=== PATIENT | female | born 1950 | race Caucasian/White ===

== ENCOUNTER 2022-05-15 06:10 | Inpatient (IN) ==
[2022-05-15] MEDS ORDERED: SODIUM CHLORIDE 0.9% 1000ML 1,000 ML IV STA (06:37)
[2022-05-15] MEDS ORDERED: ONDANSETRON INJ 2 MG/ML 2 ML VIAL IV STA (06:37)
--- NOTE | 2022-05-15 06:38 | Emergency Department Note ---
Impression & Plan Partial obstruction of small intestine, Right sided abdominal pain ED Provider Note NAME: ANGEL LOFTON AGE: 71 SEX: F : 1950 ARRIVES VIA: Walk-In INFORMANT: Patient, ED PROVIDER(S): Javad Suarez DO CHIEF COMPLAINT: Abdominal pain HPI: The patient is a 71-year-old female who presented to the emergency department for evaluation of abdominal pain. The patient describes right-sided abdominal pain which began last evening. She tried [id number] medications without relief. She has a history of irritable bowel syndrome but states the pain did not feel completely similar but she did try the usual things she would do to make her irritable bowel feel better. She does not have any history of intra-abdominal surgery in the past. She notices nausea but no vomiting. She is had no fever. She denies having any back pain. She denies having any dysuria or frequency. She states the pain is moderate and worsens with ambulation as well as bending forward. ROS: See above HPI for pertinent positives & negatives. A total of 10 systems reviewed and were otherwise negative. PAST MEDICAL HISTORY: See Below PAST SURGICAL HISTORY: See Below FAMILY HISTORY: See Below SOCIAL HISTORY: See Below HOME MEDICATIONS: See Below ALLERGIES: See Below VITALS: See Below PHYSICAL EXAMINATION: GENERAL: Patient is awake alert in no acute distress patient is resting comfortably and showing no signs of anxiety EYES: The conjunctivae are clear. The pupils are round and reactive. EARS, NOSE, MOUTH AND THROAT: The nose is without any evidence of any deformity. Mucous membranes are moist. Tongue is midline. NECK: The neck is nontender and supple. RESPIRATORY: Normal respiratory effort is noted there is no evidence of wheezing rhonchi or rales CARDIOVASCULAR: Regular rate and rhythm noted there no murmurs rubs or gallops normal S1 normal S2. GASTROINTESTINAL: There is right lower quadrant tenderness palpation with guarding in the right lower quadrant. The abdomen is soft and mildly distended. MUSCULOSKELETAL/EXTREMITIES: There is no evidence of gross deformity full range of motion is noted in the hips and shoulders. SKIN: There is no obvious evidence of any rash. There are no petechiae, pallor or cyanosis noted. NEUROLOGIC: Patient is awake alert and oriented x3 MEDICAL DECISION MAKING: The patient is a 71-year-old female who presented to the emergency department for an evaluation of right-sided abdominal pain. The patient's history and physical exam appear to be consistent with a surgical abdomen. Laboratory studies did not reveal high white blood cell count but CT of the abdomen and pelvis was obtained. The patient was found to have findings in the small bowel that could be consistent with small bowel obstruction. The patient was treated with IV fluids in the emergency department. She was reevaluated multiple times. I discussed the patient's laboratory and radiographic studies with her. There are some uncertainty as to the cause of the patient's findings at this time but given her abdominal pain I do feel the patient may require further inpatient management. For this reason I discussed her case with the [facility] hospitalist group. They have agreed to evaluate the patient in the emergency department for further management and disposition. Triage Nursing notes reviewed. Prior medical records reviewed Vital Signs: reviewed and remarkable for elevated blood pressure. Differential diagnosis: Etiologies such as appendicitis, diverticulitis, obstruction, inflammatory bowel disease, renal colic, PUD, biliary pathology, pancreatitis, mesenteric ischemia, aortic pathology, infections, genitourinary, UTI, perforated viscus, as well as others were entertained. ER treatment provided: See below Diagnostics interpreted by me: ECG: none Cardiac Monitoring: An order was placed for continuous cardiac monitoring. The monitor shows a rate of 75 bpm with sinus rhythm. Laboratory studies: As stated above and show below. Imaging studies: See below Consultation(s): I discussed this case with Dr. Medrano who is on-call for the [facility] hospitalist group. Past Med/Surg History Medical History (Updated 05/15/22 @ 11:57 by Javad Suarez DO) Hypertension Hypothyroid IBS (irritable bowel syndrome) Surgical History H/O thyroidectomy H/O tubal ligation Social History Smoking Status: Former smoker Preferred Language: Mongolian Feels Safe at Home: Yes Allergies Allergies Allergy/AdvReac Type Severity Reaction Status Date / Time lisinopril AdvReac Unknown Verified 05/15/22 10:41 Penicillins AdvReac Unknown Verified 05/15/22 10:41 Results & Data (ED) Vital Signs Vital Signs - 24 hr 05/15/22 06:14 05/15/22 08:13 05/15/22 10:32 Temperature 36.6 C Temperature Source Temporal Artery Scan Pulse Rate 85 Pulse Rate [Radial] 79 75 Pulse Rhythm [Radial] Regular Respiratory Rate 20 18 18 Respiratory Effort / Characteristics Non-Labored Spontaneous Non-Labored Non-Labored Respiratory Depth Normal Normal Normal Respiratory Pattern Regular Blood Pressure 171/101 H Blood Pressure [Right Arm] 171/99 H 143/88 H Blood Pressure Mean 124 Blood Pressure Mean [Right Arm] 123 106 Pulse Oximetry 98 97 95 Oxygen Delivery Method Room Air Room Air Room Air Sepsis New/Unexplained Change in Mental Status N/A Sepsis Action Taken by Nursing No Action Required Home Medications Current Medication List: was personally reviewed by me Laboratory Data Attestation: I reviewed the patient's lab results. Result diagrams: 05/15/22 06:30 05/15/22 06:30 Lab Results 05/15/22 05/15/22 05/15/22 Range/Units 06:30 06:30 06:47 WBC 8.14 (4.8-10.8) K/ul RBC 4.62 (3.93-5.22) M/uL Hgb 14.7 (12.0-16.0) g/dl POC Hgb 15.0 (12.0-16.0) g/dl Hct 43.2 (34.1-44.9) % POC Hct 44 (37-47) % MCV 93.5 (80.0-100.0) fL MCH 31.8 (25.0-34.0) pg MCHC 34.0 (32.0-36.0) g/dL RDW Std Deviation 44.4 (36.4-46.3) fL RDW Coeff of Fabiola 13.0 (11.5-14.5) % Plt Count 272 (130-400) K/uL MPV 8.7 L (9.4-12.3) fL Immature Gran % (Auto) 0.4 % Neut % (Auto) 73.6 % Lymph % (Auto) 20.0 % Lipscomb % (Auto) 4.9 % Eos % (Auto) 0.6 % Baso % (Auto) 0.5 % Neut # (Auto) 5.99 (1.4-6.5) K/uL Lymph # (Auto) 1.63 (1.2-3.4) K/uL Lipscomb # (Auto) 0.40 (0.24-0.82) K/uL Eos # (Auto) 0.05 (0-0.50) K/uL Baso # (Auto) 0.04 (0-0.2) K/uL Immature Gran # (Auto) 0.03 H (0.00-0.02) K/uL ESR (0-30) mm/hr POC Sodium 137 (135-144) mmol/L Sodium 135 L (136-145) mmol/L POC Potassium 4.1 (3.3-5.0) mmol/L Potassium 4.1 (3.5-5.1) mmol/L POC Chloride 101 (101-112) mmol/L Chloride 102 (98-107) mmol/L Carbon Dioxide 26 (21-32) mmol/L POC Total CO2 25 (24-31) mmol/L Anion Gap 7 (3-11) POC Anion Gap 16.0 (16-25) mmol/L POC BUN 18 (7-18) mg/dl BUN 16 (6-23) mg/dl Creatinine 0.95 (0.6-1.2) mg/dl POC Creatinine 0.9 (0.6-1.3) mg/dl Est Cr Clr Drug Dosing 46.2 ml/min Est GFR ( Amer) 69.4 ml/min Est GFR (Non-Af Amer) 59.8 ml/min BUN/Creatinine Ratio 16.8 (10-20) Glucose 108 H (70-99(Fasting)) mg/dl POC Glucose (other) 113 H (70-99) mg/dl Calcium 9.5 (8.5-10.1) mg/dl POC Ioniz Calcium Beronica 1.20 (1.12-1.32) mmol/l Total Bilirubin 0.7 (0.2-1.0) mg/dl AST 20 (13-39) U/L ALT 17 (7-52) U/L Alkaline Phosphatase 64 (34-104) U/L C-Reactive Protein (0-0.5) mg/dl Total Protein 7.4 (6.0-8.3) gm/dl Albumin 4.6 (3.4-5.0) gm/dl Globulin 2.8 (2.5-4.0) gm/dl Albumin/Globulin Ratio 1.6 (0.9-2) Lipase 17 (11-82) U/L Procalcitonin (0-0.5) ng/ml Urine Color Urine Appearance (Clear) Urine pH (4.5-7.5) Ur Specific [place] (1.000-1.030) Urine Protein (Negative) Urine Glucose (UA) (Negative) Urine Ketones (Negative) Urine Blood (Negative) Urine Nitrite (Negative) Urine Bilirubin (Negative) Urine Urobilinogen (Negative) Ur Leukocyte Esterase (Negative) SARS-CoV-2, RNA, NAAT (NEGATIVE) 05/15/22 05/15/22 05/15/22 Range/Units 07:28 09:12 09:12 WBC (4.8-10.8) K/ul RBC (3.93-5.22) M/uL Hgb (12.0-16.0) g/dl POC Hgb (12.0-16.0) g/dl Hct (34.1-44.9) % POC Hct (37-47) % MCV (80.0-100.0) fL MCH (25.0-34.0) pg MCHC (32.0-36.0) g/dL RDW Std Deviation (36.4-46.3) fL RDW Coeff of Fabiola (11.5-14.5) % Plt Count (130-400) K/uL MPV (9.4-12.3) fL Immature Gran % (Auto) % Neut % (Auto) % Lymph % (Auto) % Lipscomb % (Auto) % Eos % (Auto) % Baso % (Auto) % Neut # (Auto) (1.4-6.5) K/uL Lymph # (Auto) (1.2-3.4) K/uL [place]comb # (Auto) (0.24-0.82) K/uL Eos # (Auto) (0-0.50) K/uL Baso # (Auto) (0-0.2) K/uL Immature Gran # (Auto) (0.00-0.02) K/uL ESR 11 (0-30) mm/hr POC Sodium (135-144) mmol/L Sodium (136-145) mmol/L POC Potassium (3.3-5.0) mmol/L Potassium (3.5-5.1) mmol/L POC Chloride (101-112) mmol/L Chloride (98-107) mmol/L Carbon Dioxide (21-32) mmol/L POC Total CO2 (24-31) mmol/L Anion Gap (3-11) POC Anion Gap (16-25) mmol/L POC BUN (7-18) mg/dl BUN (6-23) mg/dl Creatinine (0.6-1.2) mg/dl POC Creatinine (0.6-1.3) mg/dl Est Cr Clr Drug Dosing ml/min Est GFR ( Amer) ml/min Est GFR (Non-Af Amer) ml/min BUN/Creatinine Ratio (10-20) Glucose (70-99(Fasting)) mg/dl POC Glucose (other) (70-99) mg/dl Calcium (8.5-10.1) mg/dl POC Ioniz Calcium Beronica (1.12-1.32) mmol/l Total Bilirubin (0.2-1.0) mg/dl AST (13-39) U/L ALT (7-52) U/L Alkaline Phosphatase (34-104) U/L C-Reactive Protein < 0.50 (0-0.5) mg/dl Total Protein (6.0-8.3) gm/dl Albumin (3.4-5.0) gm/dl Globulin (2.5-4.0) gm/dl Albumin/Globulin Ratio (0.9-2) Lipase (11-82) U/L Procalcitonin (0-0.5) ng/ml Urine Color Yellow Urine Appearance Clear (Clear) Urine pH 6.5 (4.5-7.5) Ur Specific [place] 1.019 (1.000-1.030) Urine Protein Negative (Negative) Urine Glucose (UA) Negative (Negative) Urine Ketones 1+ H (Negative) Urine Blood Negative (Negative) Urine Nitrite Negative (Negative) Urine Bilirubin Negative (Negative) Urine Urobilinogen Negative (Negative) Ur Leukocyte Esterase Negative (Negative) SARS-CoV-2, RNA, NAAT (NEGATIVE) 05/15/22 05/15/22 Range/Units 09:12 10:18 WBC (4.8-10.8) K/ul RBC (3.93-5.22) M/uL Hgb (12.0-16.0) g/dl POC Hgb (12.0-16.0) g/dl Hct (34.1-44.9) % POC Hct (37-47) % MCV (80.0-100.0) fL MCH (25.0-34.0) pg MCHC (32.0-36.0) g/dL RDW Std Deviation (36.4-46.3) fL RDW Coeff of Fabiola (11.5-14.5) % Plt Count (130-400) K/uL MPV (9.4-12.3) fL Immature Gran % (Auto) % Neut % (Auto) % Lymph % (Auto) % [place]comb % (Auto) % Eos % (Auto) % Baso % (Auto) % Neut # (Auto) (1.4-6.5) K/uL Lymph # (Auto) (1.2-3.4) K/uL [place] # (Auto) (0.24-0.82) K/uL Eos # (Auto) (0-0.50) K/uL Baso # (Auto) (0-0.2) K/uL Immature Gran # (Auto) (0.00-0.02) K/uL ESR (0-30) mm/hr POC Sodium (135-144) mmol/L Sodium (136-145) mmol/L POC Potassium (3.3-5.0) mmol/L Potassium (3.5-5.1) mmol/L POC Chloride (101-112) mmol/L Chloride (98-107) mmol/L Carbon Dioxide (21-32) mmol/L POC Total CO2 (24-31) mmol/L Anion Gap (3-11) POC Anion Gap (16-25) mmol/L POC BUN (7-18) mg/dl BUN (6-23) mg/dl Creatinine (0.6-1.2) mg/dl POC Creatinine (0.6-1.3) mg/dl Est Cr Clr Drug Dosing ml/min Est GFR ( Amer) ml/min Est GFR (Non-Af Amer) ml/min BUN/Creatinine Ratio (10-20) Glucose (70-99(Fasting)) mg/dl POC Glucose (other) (70-99) mg/dl Calcium (8.5-10.1) mg/dl POC Ioniz Calcium Beronica (1.12-1.32) mmol/l Total Bilirubin (0.2-1.0) mg/dl AST (13-39) U/L ALT (7-52) U/L Alkaline Phosphatase (34-104) U/L C-Reactive Protein (0-0.5) mg/dl Total Protein (6.0-8.3) gm/dl Albumin (3.4-5.0) gm/dl Globulin (2.5-4.0) gm/dl Albumin/Globulin Ratio (0.9-2) Lipase (11-82) U/L Procalcitonin < 0.05 (0-0.5) ng/ml Urine Color Urine Appearance (Clear) Urine pH (4.5-7.5) Ur Specific [place] (1.000-1.030) Urine Protein (Negative) Urine Glucose (UA) (Negative) Urine Ketones (Negative) Urine Blood (Negative) Urine Nitrite (Negative) Urine Bilirubin (Negative) Urine Urobilinogen (Negative) Ur Leukocyte Esterase (Negative) SARS-CoV-2, RNA, NAAT NEGATIVE (NEGATIVE) Administered Medications Discontinued Medications Acetaminophen (Acetaminophen 1000 Mg/100 Ml Iv) 1,000 mg IV ONE STA Stop: 05/15/22 11:03 Last Admin: 05/15/22 11:50 Dose: 1,000 mg Documented By: TAMMIE Sodium Chloride (Nss 1000ml) 1,000 mls @ 999 mls/hr IV .Q1H1M STA Stop: 05/15/22 07:37 Last Infusion: 05/15/22 08:50 Dose: 0 mls/hr Documented By: Admin: 05/15/22 07:43 Dose: 999 mls/hr Documented By: RUBÉN Ioversol (Optiray 300 100ml) 94 ml IV ONCE ONE Stop: 05/15/22 08:01 Last Admin: 05/15/22 08:00 Dose: 94 ml Documented By: ABDI Morphine Sulfate (Morphine Sulfate 4 Mg/Ml 1 Ml Carp\Vial) 4 mg IV Q15M PRN PRN Reason: Pain Stop: 05/29/22 06:36 Last Admin: 05/15/22 10:28 Dose: 4 mg Documented By: Admin: 05/15/22 09:40 Dose: 4 mg Documented By: Admin: 05/15/22 08:16 Dose: 4 mg Documented By: Admin: 05/15/22 07:36 Dose: 4 mg Documented By: RUBÉN Ondansetron HCl (Ondansetron Inj 2 Mg/Ml 2 Ml Vial) 4 mg IV NOW STA Stop: 05/15/22 06:38 Last Admin: 05/15/22 07:36 Dose: 4 mg Documented By: RUBÉN Imaging Data Radiologist's Impression: Abdomen/Pelvis CT 05/15/22 06:[address] WITH IV CONTRAST CT DOSE: 266.52 mGy.cm HISTORY: Acute right lower quadrant abdominal pain RLQ pain TECHNIQUE: Multiaxial CT images of the abdomen and pelvis were performed following the IV administration of 94 cc of Optiray, A dose lowering technique was utilized adhering to the principles of ALARA. COMPARISON STUDY: None. FINDINGS: Subsegmental bibasilar atelectasis. No pneumatosis or pneumop eritoneum. Unremarkable spleen. There is equivocal interstitial and peripancreatic edema. The adrenal glands are within normal limits. Cholelithiasis without CT evidence of acute cholecystitis. There are a few indeterminate subcentimeter hypodense foci of the left hepatic lobe which are too small to characterize. Patency of the hepatic and portal veins. No renal or ureteral calculi or hydronephrosis. Symmetric enhancement of the kidneys. External renal pelves are noted bilaterally. Decompressed urinary bladder. Unremarkable uterus. No abdominal aortic aneurysm or lymphadenopathy. Distal esophageal wall thickening. Fluid within the distal esophagus is noted. Moderate sized duodenal diverticulum. Trace free pelvic fluid. Colonic diverticulosis without acute diverticulitis. The terminal ileum is decompressed. The appendix appears noninflamed on image 289 series 3. There are several fluid- filled nondilated loops of small bowel within the right midabdomen which demonstrate mild interloop edema. Several loops of distal and fluid-filled small bowel measure within the upper limits of normal at approximately 3 cm. No discrete transition point identified. Tiny fat filled umbilical hernia. Mild generalized body wall edema. No acute fracture. Mild paravertebral edema at L1- L2 is noted with severe intervertebral disc space narrowing. Lumbar levoscoliosis. IMPRESSION: 1. Borderline dilated fluid and stool-filled loops of small bowel within the abdomen and pelvis measuring up to 3 cm. Interloop edema is noted involving nondilated fluid-filled loops of small bowel within the right midabdomen. Findings are suggestive of a nonspecific enteritis with possible partial small bowel obstruction. Follow-up is recommended. 2. No pneumatosis or pneumoperitoneum. 3. Noninflamed appendix. 4. Equivocal edema involving the pancreas. Correlate with serum lipase recommended. 5. Severe intervertebral disc space narrowing at L1-L2 with nonspecific paravertebral edema which may be secondary to degenerative change versus discitis/osteomyelitis. Correlate with patient history and clinical exam findings. ACT 112: Negative or not required by law. The above report was generated using voice recognition software. It may contain grammatical, syntax or spelling errors. Electronically signed by: Fredrick Martin M.D. 05/15/2022 8:47 AM Discharge Plan Visit Data Chief Complaint: Abdominal Pain Stated Complaint: ABDOMINAL PAIN ED Provider: Javad Suarez Discharge Problem: Partial obstruction of small intestine, Right sided abdominal pain Patient Disposition: Being Evaluated by Hospitalist Forms Stand Alone Forms: [facility] Referrals Referrals: Ananda Leos [Primary Care Provider] -
[2022-05-15 06:51] LABS: Basophils # (auto) 0.04 K/uL (0-0.2); Basophils % (auto) 0.5 %; Eosinophils # (auto) 0.05 K/uL (0-0.50); Eosinophils % (auto) 0.6 %; Hematocrit (blood only) 43.2 % (34.1-44.9); Hemoglobin 14.7 g/dl (12.0-16.0); Immature Granulocytes # (auto) 0.03 K/uL (0.00-0.02); Immature Granulocytes % (auto) 0.4 %; Lymphocytes # (auto) 1.63 K/uL (1.2-3.4); Mean Corpuscular Hemoglobin 31.8 pg (25.0-34.0); Mean Corpuscular Volume 93.5 fL (80.0-100.0); Mean Platelet Volume 8.7 fL (9.4-12.3); Monocytes % (auto) 4.9 %; Neutrophils # (auto) 5.99 K/uL (1.4-6.5); Neutrophils % (auto) 73.6 %; Platelet Count 272 K/uL (130-400); RDW Standard Deviation 44.4 fL (36.4-46.3); Red Blood Count 4.62 M/uL (3.93-5.22); White Blood Count 8.14 K/ul (4.8-10.8)
[2022-05-15 06:59] LABS: iSTAT Creatinine 0.9 mg/dl (0.6-1.3); iSTAT Ionized Calcium 1.2 mmol/l (1.12-1.32); iSTAT Potassium 4.1 mmol/L (3.3-5.0)
[2022-05-15 07:17] LABS: Albumin Globulin Ratio 1.6 (0.9-2); Albumin Level 4.6 gm/dl (3.4-5.0); BUN Creatinine Ratio 16.8 (10-20); Bilirubin,Total 0.7 mg/dl (0.2-1.0); Calcium 9.5 mg/dl (8.5-10.1); Creatinine Clr Calc Pharmacy 46.2 ml/min; Est GFR (African American) 69.4 ml/min; Est GFR (Non-African American) 59.8 ml/min; Globulin 2.8 gm/dl (2.5-4.0); Potassium 4.1 mmol/L (3.5-5.1); Total Protein 7.4 gm/dl (6.0-8.3)
[2022-05-15] MEDS: MoRPHine SULFATE 4 MG/ML 1 ML CARP\\VIAL IV PRN ×4 (07:36→10:28)
[2022-05-15 07:42] LABS: Appearance Urine Clear (Clear); Bilirubin Urine Negative (Negative); Blood Urine Negative (Negative); Color Urine Yellow; Glucose Urine UA Negative (Negative); Ketones Urine 1+ (Negative); Leukocyte Esterase Urine Negative (Negative); Nitrite Urine Negative (Negative); Protein Urine Negative (Negative); Specific Gravity Urine 1.019 (1.000-1.030); Urobilinogen Urine Negative (Negative); pH Urine 6.5 (4.5-7.5)
[2022-05-15] MEDS ORDERED: OPTIRAY 300 100mL IV ONE (08:00)
--- NOTE | 2022-05-15 08:49 | CT Scan Report ---
ABDOMEN AND PELVIS CT WITH IV CONTRAST CT DOSE: 266.52 mGy.cm HISTORY: Acute right lower quadrant abdominal pain RLQ pain TECHNIQUE: Multiaxial CT images of the abdomen and pelvis were performed following the IV administrat ion of 94 cc of Optiray, A dose lowering technique was utilized adhering to the principles of ALARA. COMPARISON STUDY: None. FINDINGS: Subsegmental bibasilar atelectasis. No pneumatosis or pneumoperitoneum. Unremarkable spleen . There is equivocal interstitial and peripancreatic edema. The adrenal glands are within normal limi ts. Cholelithiasis without CT evidence of acute cholecystitis. There are a few indeterminate subcenti meter hypodense foci of the left hepatic lobe which are too small to characterize. Patency of the hep atic and portal veins. No renal or ureteral calculi or hydronephrosis. Symmetric enhancement of the kidneys. External renal pelves are noted bilaterally. Decompressed urinary bladder. Unremarkable uterus. No abdominal aortic aneurysm or lymphadenopathy. Distal esophageal wall thickening. Fluid within the distal esophagus is noted. Moderate sized duodena l diverticulum. Trace free pelvic fluid. Colonic diverticulosis without acute diverticulitis. The ter joselin ileum is decompressed. The appendix appears noninflamed on image 289 series 3. There are severa l fluid-filled nondilated loops of small bowel within the right midabdomen which demonstrate mild int erloop edema. Several loops of distal and fluid-filled small bowel measure within the upper limits of normal at approximately 3 cm. No discrete transition point identified. Tiny fat filled umbilical her tk. Mild generalized body wall edema. No acute fracture. Mild paravertebral edema at L1-L2 is noted with severe intervertebral disc space narrowing. Lumbar levoscoliosis. IMPRESSION: 1. Borderline dilated fluid and stool-filled loops of small bowel within the abdomen and pelvis measu ring up to 3 cm. Interloop edema is noted involving nondilated fluid-filled loops of small bowel with in the right midabdomen. Findings are suggestive of a nonspecific enteritis with possible partial sma ll bowel obstruction. Follow-up is recommended. 2. No pneumatosis or pneumoperitoneum. 3. Noninflamed appendix. 4. Equivocal edema involving the pancreas. Correlate with serum lipase recommended. 5. Severe intervertebral disc space narrowing at L1-L2 with nonspecific paravertebral edema which may be secondary to degenerative change versus discitis/osteomyelitis. Correlate with patient history an d clinical exam findings. ACT 112: Negative or not required by law. The above report was generated using voice recognition software. It may contain grammatical, syntax o r spelling errors. Electronically signed by: Fredrick Martin M.D. 05/15/2022 8:47 AM
--- NOTE | 2022-05-15 09:26 | History & Physical Report ---
Date of Service May 15, 2022 Assessment & Plan (1) Right sided abdominal pain: Plan: 71 year old female w/ IBS, HTN, and hypothyroidism who presents for right sided abdominal pain that started yesterday evening. She has nausea, but no vomiting. - leading differential is partial SBO. Also considered nonspecific enteritis. Considered gallbladder pathology despite CT not suggesting cholecystitis. Low suspicion for spinal etiology. CT abd pelv 1. Borderline dilated fluid and stool-filled loops of small bowel within the abdomen and pelvis measuring up to 3 cm. Interloop edema is noted involving nondilated fluid-filled loops of small bowel within the right midabdomen. Findings are suggestive of a nonspecific enteritis with possible partial small bowel obstruction. Follow-up is recommended. 2. No pneumatosis or pneumoperitoneum. 3. Noninflamed appendix. 4. Equivocal edema involving the pancreas. Correlate with serum lipase recommended. 5. Severe intervertebral disc space narrowing at L1-L2 with nonspecific paravertebral edema which may be secondary to degenerative change versus discitis/osteomyelitis. Correlate with patient history and clinical exam findings. - main risk factor for adhesions is her hx of laparoscopic tubal ligation - SIRS negative, not septic appearing. vitals stable - RUQ ultrasound. defer surgery and GI consults at this time - procal neg. check lactate and GI biofire. - IV fluids, NPO. if need escalation of treatment, NG tube would be next step. - pain control: scheduled Tylenol 1000mg q8h. prn toradol q6h. prn morphine 4mg IV q1h prn for 8-10 pain not relieved by toradol - using opiates cautiously as can mask abd pain (2) DJD (degenerative joint disease): Plan: - severe L1-L2 disc narrowing per CT abd - w/ absence of spinal ttp or back pain, less likely contributory to chief complaint of R abd pain (3) Hypertension: Plan: - continue home regimen (4) Hypothyroid: Plan: - continue home regimen (5) IBS (irritable bowel syndrome): Plan: - controlled, not on medications Plan Strict NPO. Maintenance IV fluids. Lovenox PCU full code History of Present Illness Chief Complaint: severe right abdominal pain Primary Care Provider: Ananda Leos 71 year old female w/ IBS, HTN, hypothyroidism, and who presents for right sided abdominal pain that started yesterday evening. The pain was rated at 9-10 out of 10, sharp, and woke her up from sleep. It is intermittent and in the periumbilical and right mid and right lower abdomen. Denies eating new foods or sick contact. No one in the family has similar symptoms. She denies history of similar abdominal pain. She had nausea, but no vomiting, fevers, chills, constipation or diarrhea. Her bowel movements have been regular. She denies urinary symptoms or history of kidney stones. No history of CHF. She last ate yesterday evening. She took her AM meds. ED course: 1L NSS. Zofran. prn morphine home meds: levothyroxine 75mcg, losartan, rosuvastatin cbc, cmp reviewed. lipase neg. UA w/ 1+ ketones. Allergies Allergy/AdvReac Type Severity Reaction Status Date / Time lisinopril AdvReac Unknown Verified 05/15/22 10:41 Penicillins AdvReac Unknown Verified 05/15/22 10:41 Home Medications Medication Instructions Recorded Confirmed Type levothyroxine 75 mcg tablet 75 mcg PO DAILY 05/15/22 05/15/22 History (Synthroid) losartan 50 mg tablet 100 mg PO HS 05/15/22 05/15/22 History rosuvastatin 10 mg tablet 10 mg PO DAILY 05/15/22 05/15/22 History Past Med/Surg History Medical History (Updated 05/15/22 @ 12:32 by Tripp Medrano MD) Hypertension Hypothyroid IBS (irritable bowel syndrome) Surgical History H/O thyroidectomy H/O tubal ligation Social History Smoking Status: Former smoker Hx Alcohol Use: No Hx Substance Use: No Preferred Language: Uzbek Ventilated Rib Fitter Required: No Beliefs That Will Affect Care: None Current Living Situation: Spouse Other Information That Helps Us Care for You: Yes Feels Safe at Home: Yes Safety Concerns: Feels Safe At This Time Assistive Devices: None Review of Systems Review of Systems: All systems reviewed & are unremarkable except as noted in HPI & below Physical Exam Physical Exam: General: Grossly A&O. NAD. Cooperative. HEENT: Atraumatic, normocephalic. EOMI. Oropharynx w/o erythema or edema. Pulm: CTAB. -wheezes, -rales, -rhonchi. No respiratory distress. Cardiac: RRR, -mrg. Radial pulses intact and symmetrical. Abdominal: Nondistended, soft. R mid and R lower abd ttp to light palpation. No guarding or rebound at time of my exam: s/p 3 doses of morphine IV 4mg. Back: No cva ttp. No spinal ttp. Neg SLR bilaterally. Integ: Warm, dry, intact. Results & Data Results & Data ([facility]) Vital Signs (Past 12 Hours) Vital Signs Temp Pulse Pulse Resp BP BP Pulse Ox 05/15/22 08:13 79 18 171/99 H 97 05/15/22 06:14 36.6 C 85 20 171/101 H 98 O2 Del Method 05/15/22 08:13 Room Air 05/15/22 06:14 Room Air Laboratory Results Cardiac Enzymes 05/15/22 Range/Units 06:30 AST 20 (13-39) U/L CBC 05/15/22 Range/Units 06:30 WBC 8.14 (4.8-10.8) K/ul RBC 4.62 (3.93-5.22) M/uL Hgb 14.7 (12.0-16.0) g/dl Hct 43.2 (34.1-44.9) % Plt Count 272 (130-400) K/uL Neut # (Auto) 5.99 (1.4-6.5) K/uL Lymph # (Auto) 1.63 (1.2-3.4) K/uL [place] # (Auto) 0.40 (0.24-0.82) K/uL Eos # (Auto) 0.05 (0-0.50) K/uL Baso # (Auto) 0.04 (0-0.2) K/uL Comprehensive Metabolic Panel 05/15/22 Range/Units 06:30 Sodium 135 L (136-145) mmol/L Potassium 4.1 (3.5-5.1) mmol/L Chloride 102 (98-107) mmol/L Carbon Dioxide 26 (21-32) mmol/L BUN 16 (6-23) mg/dl Creatinine 0.95 (0.6-1.2) mg/dl Glucose 108 H (70-99(Fasting)) mg/dl Calcium 9.5 (8.5-10.1) mg/dl AST 20 (13-39) U/L ALT 17 (7-52) U/L Alkaline Phosphatase 64 (34-104) U/L Total Protein 7.4 (6.0-8.3) gm/dl Albumin 4.6 (3.4-5.0) gm/dl Intake and Output 05/14/22 05/15/22 05/15/22 22:59 06:59 14:59 Intake Total 1000 / 1000 Balance 1000 / 1000 Intake: IV 1000 / 1000 Sodium Chloride 0.9% 1000ML 1, 1000 / 1000 000 ml @ 999 mls/hr IV .Q1H1M STA Rx#:[id number] Other: Weight 57.3 kg 57.3 kg Weight Measurement Method Chair Scale Patient Weight 05/16/22 06:59 Weight 57.3 kg Diagnostic Findings Abdomen/Pelvis CT 05/15/22 06:[address] WITH IV CONTRAST CT DOSE: 266.52 mGy.cm HISTORY: Acute right lower quadrant abdominal pain RLQ pain TECHNIQUE: Multiaxial CT images of the abdomen and pelvis were performed following the IV administration of 94 cc of Optiray, A dose lowering technique was utilized adhering to the principles of ALARA. COMPARISON STUDY: None. FINDINGS: Subsegmental bibasilar atelectasis. No pneumatosis or pneumoperitoneum. Unremarkable spleen. There is equivocal interstitial and peripancreatic edema. The adrenal glands are within normal limits. Cholelithiasis without CT evidence of acute cholecystitis. There are a few indeterminate subcentimeter hypodense foci of the left hepatic lobe which are too small to characterize. Patency of the hepatic and portal veins. No renal or ureteral calculi or hydronephrosis. Symmetric enhancement of the kidneys. External renal pelves are noted bilaterally. Decompressed urinary bladder. Unremarkable uterus. No abdominal aortic aneurysm or lymphadenopathy. Distal esophageal wall thickening. Fluid within the distal esophagus is noted. Moderate sized duodenal diverticulum. Trace free pelvic fluid. Colonic diverticulosis without acute diverticulitis. The terminal ileum is decompressed. The appendix appears noninflamed on image 289 series 3. There are several fluid- filled nondilated loops of small bowel within the right midabdomen which demonstrate mild interloop edema. Several loops of distal and fluid-filled small bowel measure within the upper limits of normal at approximately 3 cm. No discrete transition point identified. Tiny fat filled umbilical hernia. Mild generalized body wall edema. No acute fracture. Mild paravertebral edema at L1- L2 is noted with severe intervertebral disc space narrowing. Lumbar levoscoliosis. IMPRESSION: 1. Borderline dilated fluid and stool-filled loops of small bowel within the abdomen and pelvis measuring up to 3 cm. Interloop edema is noted involving nondilated fluid-filled loops of small bowel within the right midabdomen. Findings are suggestive of a nonspecific enteritis with possible partial small bowel obstruction. Follow-up is recommended. 2. No pneumatosis or pneumoperitoneum. 3. Noninflamed appendix. 4. Equivocal edema involving the pancreas. Correlate with serum lipase recommended. 5. Severe intervertebral disc space narrowing at L1-L2 with nonspecific paravertebral edema which may be secondary to degenerative change versus discitis/osteomyelitis. Correlate with patient history and clinical exam findings. ACT 112: Negative or not required by law. The above report was generated using voice recognition software. It may contain grammatical, syntax or spelling errors. Electronically signed by: Fredrick Martin M.D. 05/15/2022 8:47 AM Code Status & VTE Plan Code Status full VTE Prophylaxis Plan VTE Prophylaxis will be ordered: Yes Supervising Physician Co-Signing Physician Notes I personally examined the patient and verified all brown points of history and exam, discussed case, and agree with decision making with Dr Medrano. Right-sided abdominal pain. Vitals noted, in general she is awake and alert pleasant appears fatigued no distress. HEENT normocephalic atraumatic mucous membranes moist. Breathing unlabored no accessory muscle use good effort. Skin shows no rashes no pallor or icterus. Abdomen soft right-sided abdominal tenderness without guarding rebound or rigidity, in the mid to lower abdomen. Neuro without focal deficits. Abdominal painappears to be most consistent with a small bowel obstruction, versus less likely enteritis with subsequent obstruction. Either wayappears to be improving with pain control. Continue n.p.o., pain control, time, serial exams, IV fluids. DVT prophylaxisLovenox Otherwise as above Resident Activity Tracking Resident Involvement: Resident Care Provided Care Provided: Adult Hospital Medicine
[2022-05-15] MEDS ORDERED: ACETAMINOPHEN 1000 MG/100 ML IV IV STA (11:02)
[2022-05-15] MEDS ORDERED: MoRPHine SULFATE 4 MG/ML 1 ML CARP\\VIAL IV PRN ×2 (11:10→12:07)
[2022-05-15] MEDS ORDERED: ONDANSETRON INJ 2 MG/ML 2 ML VIAL IV PRN (12:07)
[2022-05-15] MEDS ORDERED: ACETAMINOPHEN 1000 MG/100 ML IV IV SCH (12:07)
[2022-05-15] MEDS: SODIUM CHLORIDE 0.9% 1000ML 1,000 ML IV SCH (12:17)
--- NOTE | 2022-05-15 12:51 | Ultrasound Report ---
US abdomen limited CLINICAL HISTORY: gallbladder TECHNIQUE: Multiple real-time sonographic images of the right upper quadrant were obtained. Comparison: Comparison is made to CT abdomen pelvis 05/15/2022 FINDINGS: The liver is diffusely homogenous with normal contour and echogenicity. No focal mass lesions are see n. No intrahepatic ductal dilatation is seen. Linear hyperechoic foci with posterior shadowing ar e identified layering dependently within the gallbladder, which are consistent with gallstones. The g allbladder wall is not thickened. There is no pericholecystic fluid present. The common duct measure s 0.4 cm in diameter at the level of the hepatic artery. The visualized portions of the pancreas estela ear normal. Extrarenal pelvis is noted. No ascites or free fluid is seen in Bahena's pouch. IMPRESSION: Gallstones without evidence of acute cholecystitis. ACT 112: Negative or not required by law. Electronically signed by: Danny Mejía M.D. 05/15/2022 12:50 PM
[2022-05-15] MEDS ORDERED: ACETAMINOPHEN 1000 MG/100 ML IV IV ONE (16:15)
[2022-05-15] MEDS: KETOROLAC TROMETHAMINE 15 MG/ML VIAL IV PRN (16:18)
[2022-05-15] MEDS ORDERED: PROMETHAZINE HCL INJ 25 MG/ML 1 ML VIAL IM PRN (16:34)
[2022-05-15] MEDS ORDERED: PROCHLORPERAZINE 10 MG in SYRINGE 8 ML IV PRN (16:34)
--- NOTE | 2022-05-15 18:04 | Billing Data ---
Date of Service May 15, 2022 Coding Level of Care Code 19140 Initial Inpt Care Lvl 3
[2022-05-15] MEDS: ACETAMINOPHEN 1,000 MG/100 ML VIAL IV SCH (19:52)
[2022-05-15] MEDS: ENOXAPARIN INJ 40 MG/0.4 ML SYR SQ SCH (21:29)
[2022-05-16] MEDS: KETOROLAC TROMETHAMINE 15 MG/ML VIAL IV PRN (00:31)
[2022-05-16] MEDS: ACETAMINOPHEN 1,000 MG/100 ML VIAL IV SCH ×3 (03:18→20:15)
[2022-05-16] MEDS: SODIUM CHLORIDE 0.9% 1000ML 1,000 ML IV SCH ×2 (05:28→15:55)
[2022-05-16 08:31] LABS: Basophils # (auto) 0.02 K/uL (0-0.2); Basophils % (auto) 0.3 %; Eosinophils # (auto) 0.12 K/uL (0-0.50); Eosinophils % (auto) 1.6 %; Hematocrit (blood only) 37.3 % (34.1-44.9); Hemoglobin 12.1 g/dl (12.0-16.0); Immature Granulocytes # (auto) 0.01 K/uL (0.00-0.02); Immature Granulocytes % (auto) 0.1 %; Lymphocytes % (auto) 24.2 %; Mean Corpuscular Hemoglobin 31.5 pg (25.0-34.0); Mean Corpuscular Hgb Conc 32.4 g/dL (32.0-36.0); Mean Corpuscular Volume 97.1 fL (80.0-100.0); Mean Platelet Volume 9.1 fL (9.4-12.3); Monocytes # (auto) 0.64 K/uL (0.24-0.82); Monocytes % (auto) 8.6 %; Neutrophils # (auto) 4.85 K/uL (1.4-6.5); Neutrophils % (auto) 65.2 %; Platelet Count 229 K/uL (130-400); RDW Coefficient of Variation 13.2 % (11.5-14.5); RDW Standard Deviation 47.4 fL (36.4-46.3); Red Blood Count 3.84 M/uL (3.93-5.22); White Blood Count 7.44 K/ul (4.8-10.8)
[2022-05-16 09:01] LABS: Albumin Globulin Ratio 1.8 (0.9-2); Albumin Level 3.5 gm/dl (3.4-5.0); BUN Creatinine Ratio 17.6 (10-20); Bilirubin,Total 0.8 mg/dl (0.2-1.0); Calcium 8.2 mg/dl (8.5-10.1); Creatinine Clr Calc Pharmacy 64.6 ml/min; Est GFR (African American) 101.3 ml/min; Est GFR (Non-African American) 87.4 ml/min; Magnesium 1.8 mg/dl (1.7-2.4); Potassium 4.1 mmol/L (3.5-5.1); Total Protein 5.5 gm/dl (6.0-8.3)
--- NOTE | 2022-05-16 09:18 | Hospitalist Progress Note ---
Date of Service May 16, 2022 Assessment & Plan (1) Right sided abdominal pain: Plan: 71 year old female w/ IBS, HTN, and hypothyroidism who presents for right sided abdominal pain that started yesterday evening. She has nausea, but no vomiting. SBO - CT abd pelv: Borderline dilated fluid and stool-filled loops of small bowel within the abdomen and pelvis measuring up to 3 cm. Interloop edema is noted involving nondilated fluid-filled loops of small bowel within the right midabdomen. Findings are suggestive of a nonspecific enteritis with possible partial small bowel obstruction. - main risk factor for adhesions is her hx of laparoscopic tubal ligation - SIRS negative, not septic appearing. vitals stable - RUQ ultrasound: gallstones without acute cholecystitis - IV fluids - Advance diet as tolerated- plan for clear liquids with lunch, advance to full diet with dinner in hopes of discharge tomorrow - pain control: scheduled Tylenol 1000mg q8h. prn toradol q6h. prn morphine 4mg IV q1h prn for 8-10 pain not relieved by Toradol - using opiates cautiously as can mask abd pain DJD (degenerative joint disease): - severe L1-L2 disc narrowing per CT abd - w/ absence of spinal ttp or back pain, less likely contributory to chief complaint of R abd pain Hypertension: - will restart home medications as she tolerates po Hypothyroid: - will restart home medications as she tolerates po IBS (irritable bowel syndrome): - controlled, not on medications Plan Strict NPO. Maintenance IV fluids. Lovenox PCU full code (2) DJD (degenerative joint disease): (3) Hypertension: (4) Hypothyroid: (5) IBS (irritable bowel syndrome): Admission and Anticipated Discharge Date Admission Date: May 15, 2022 Supervising Physician Co-Signing Physician Notes I personally examined the patient and verified all brown points of history and exam, discussed case, and agree with decision making with Dr Polo Right-sided abdominal pain much improved. tolerated clear liquids well. Vitals noted, in general she is awake and alert pleasant appears fatigued no distress. HEENT normocephalic atraumatic mucous membranes moist. Breathing unlabored no accessory muscle use good effort. Skin shows no rashes no pallor or icterus. Abdomen soft minimal R sided tenderness no guarding no rebound Abdominal painappears to be most consistent with a small bowel obstruction, versus less likely enteritis with subsequent obstruction. improving nicely. advance diet as tolerated, home once tolerating regular DVT prophylaxisLovenox Otherwise as above Subjective 71 year old female with a past medical history of IBS, HTN, and hypothyroidism being managed for SBO. States her pain has significantly improved from yesterday, Has gotten 2 doses of Toradol over the past 24 hours. Is passing gas, no bowel movement. Denies any nausea/vomiting. Review of Systems Review of Systems: As per HPI Physical Exam Constitutional: Constitutional: well-appearing, no acute distress HEENT: NCAT, no conjunctival injection CV: regular rhythm, no murmur appreciated, extremities well-perfused, no LE edema Resp: CTABL, no wheezes/rales/rhonchi appreciated, no increased work of breathing GI: soft, nondistended, mild tenderness in RLQ, BS normoactive MSK: no gross deformities appreciated Skin: warm, dry, no rash appreciated Neuro: alert, oriented, no focal neurologic deficit appreciated Results & Data Results & Data ([facility]) Vital Signs (Past 12 Hours) Vital Signs Temp Pulse Pulse Pulse Resp BP Pulse Ox 05/16/22 07:33 36.7 C 78 16 163/82 H 96 05/16/22 03:22 37 C 80 16 126/73 94 05/15/22 22:15 75 05/15/22 23:38 37 C 79 18 142/84 H 92 O2 Del Method 05/16/22 07:33 Room Air 05/16/22 03:22 Room Air 05/15/22 22:15 05/15/22 23:38 Room Air Resident Activity Tracking Resident Involvement: Resident Care Provided Care Provided: Adult Hospital Medicine
[2022-05-16] MEDS ORDERED: Nursing to Pharmacy Communication SCH (15:00)
--- NOTE | 2022-05-16 17:04 | Billing Data ---
Date of Service May 16, 2022 Coding Level of Care Code 45680 Subseq Hosp Care Lvl 3
[2022-05-16] MEDS: LOSARTAN POTASSIUM 50 MG TAB PO SCH (20:14)
[2022-05-16] MEDS: ENOXAPARIN INJ 40 MG/0.4 ML SYR SQ SCH (20:14)
[2022-05-16] MEDS ORDERED: LOSARTAN POTASSIUM 50 MG TAB PO SCH (21:00)
[2022-05-17] MEDS: SODIUM CHLORIDE 0.9% 1000ML 1,000 ML IV SCH (01:13)
[2022-05-17] MEDS: ACETAMINOPHEN 1,000 MG/100 ML VIAL IV SCH (04:21)
[2022-05-17 06:58] LABS: Hematocrit (blood only) 35.9 % (34.1-44.9); Hemoglobin 11.9 g/dl (12.0-16.0); Mean Corpuscular Hgb Conc 33.1 g/dL (32.0-36.0); Mean Corpuscular Volume 96.5 fL (80.0-100.0); Mean Platelet Volume 8.8 fL (9.4-12.3); Platelet Count 210 K/uL (130-400); RDW Standard Deviation 46.3 fL (36.4-46.3); Red Blood Count 3.72 M/uL (3.93-5.22); White Blood Count 6.13 K/ul (4.8-10.8)
--- NOTE | 2022-05-17 07:06 | Hospitalist Progress Note ---
Date of Service May 17, 2022 Assessment & Plan (1) Right sided abdominal pain: Plan: 71 year old female w/ IBS, HTN, and hypothyroidism who presents for right sided abdominal pain that started yesterday evening. She has nausea, but no vomiting. SBO - CT abd pelv: Borderline dilated fluid and stool-filled loops of small bowel within the abdomen and pelvis measuring up to 3 cm. Interloop edema is noted involving nondilated fluid-filled loops of small bowel within the right midabdomen. Findings are suggestive of a nonspecific enteritis with possible partial small bowel obstruction. - main risk factor for adhesions is her hx of laparoscopic tubal ligation - SIRS negative, not septic appearing. vitals stable - RUQ ultrasound: gallstones without acute cholecystitis - IV fluids - Advance diet as tolerated- plan for clear liquids with lunch, advance to full diet with dinner in hopes of discharge tomorrow - pain control: scheduled Tylenol 1000mg q8h. prn toradol q6h. prn morphine 4mg IV q1h prn for 8-10 pain not relieved by Toradol - using opiates cautiously as can mask abd pain DJD (degenerative joint disease): - severe L1-L2 disc narrowing per CT abd - w/ absence of spinal ttp or back pain, less likely contributory to chief complaint of R abd pain Hypertension: - will restart home medications as she tolerates po Hypothyroid: - will restart home medications as she tolerates po IBS (irritable bowel syndrome): - controlled, not on medications Plan Strict NPO. Maintenance IV fluids. Lovenox PCU full code (2) DJD (degenerative joint disease): (3) Hypertension: (4) Hypothyroid: (5) IBS (irritable bowel syndrome): Admission and Anticipated Discharge Date Admission Date: May 15, 2022 Subjective 71 year old female with a past medical history of IBS, HTN, and hypothyroidism being managed for SBO. States her pain has significantly improved from yesterday, Has gotten 2 doses of Toradol over the past 24 hours. Is passing gas, no bowel movement. Denies any nausea/vomiting. Physical Exam Physical Exam: General: Grossly A&O. NAD. Cooperative. HEENT: Atraumatic, normocephalic. EOMI. Oropharynx w/o erythema or edema. Pulm: CTAB. -wheezes, -rales, -rhonchi. No respiratory distress. Cardiac: RRR, -mrg. Radial pulses intact and symmetrical. Abdominal: Nondistended, soft. R mid and R lower abd ttp to light palpation. No guarding or rebound at time of my exam: s/p 3 doses of morphine IV 4mg. Back: No cva ttp. No spinal ttp. Neg SLR bilaterally. Integ: Warm, dry, intact. Results & Data Results & Data ([facility]) Vital Signs (Past 12 Hours) Vital Signs Temp Pulse Resp BP Pulse Ox O2 Del Method 05/17/22 07:00 36.6 C 70 18 159/94 H 96 Room Air 05/17/22 03:14 36.2 C L 68 16 157/96 H 96 Room Air 05/16/22 23:15 36.7 C 73 16 143/87 H 95 Room Air 05/16/22 19:20 37.4 C 82 18 153/89 H 95 Room Air Laboratory Results 05/17/22 05/17/22 05/16/22 Range/Units 06:44 06:44 07:55 WBC 6.13 (4.8-10.8) K/ul RBC 3.72 L (3.93-5.22) M/uL Hgb 11.9 L (12.0-16.0) g/dl Hct 35.9 (34.1-44.9) % MCV 96.5 (80.0-100.0) fL MCH 32.0 (25.0-34.0) pg MCHC 33.1 (32.0-36.0) g/dL RDW Std Deviation 46.3 (36.4-46.3) fL RDW Coeff of Fabiola 13.0 (11.5-14.5) % Plt Count 210 (130-400) K/uL MPV 8.8 L (9.4-12.3) fL Immature Gran % (Auto) % Neut % (Auto) % Lymph % (Auto) % [place] % (Auto) % Eos % (Auto) % Baso % (Auto) % Neut # (Auto) (1.4-6.5) K/uL Lymph # (Auto) (1.2-3.4) K/uL [place] # (Auto) (0.24-0.82) K/uL Eos # (Auto) (0-0.50) K/uL Baso # (Auto) (0-0.2) K/uL Immature Gran # (Auto) (0.00-0.02) K/uL Sodium 139 136 (136-145) mmol/L Potassium 4.1 4.1 (3.5-5.1) mmol/L Chloride 110 H 107 (98-107) mmol/L Carbon Dioxide 25 25 (21-32) mmol/L Anion Gap 4 4 (3-11) BUN 7 12 (6-23) mg/dl Creatinine 0.65 0.68 (0.6-1.2) mg/dl Est Cr Clr Drug Dosing 67.6 64.6 ml/min Est GFR ( Amer) 102.8 101.3 ml/min Est GFR (Non-Af Amer) 88.7 87.4 ml/min BUN/Creatinine Ratio 10.8 17.6 (10-20) Glucose 85 92 (70-99(Fasting)) mg/dl Calcium 8.3 L 8.2 L (8.5-10.1) mg/dl Magnesium 1.8 (1.7-2.4) mg/dl Total Bilirubin 0.6 0.8 (0.2-1.0) mg/dl AST 19 17 (13-39) U/L ALT 13 13 (7-52) U/L Alkaline Phosphatase 43 47 (34-104) U/L Total Protein 5.6 L 5.5 L D (6.0-8.3) gm/dl Albumin 3.4 3.5 (3.4-5.0) gm/dl Globulin 2.2 L 2.0 L (2.5-4.0) gm/dl Albumin/Globulin Ratio 1.5 1.8 (0.9-2) 05/16/22 Range/Units 07:55 WBC 7.44 (4.8-10.8) K/ul RBC 3.84 L (3.93-5.22) M/uL Hgb 12.1 (12.0-16.0) g/dl Hct 37.3 (34.1-44.9) % MCV 97.1 (80.0-100.0) fL MCH 31.5 (25.0-34.0) pg MCHC 32.4 (32.0-36.0) g/dL RDW Std Deviation 47.4 H (36.4-46.3) fL RDW Coeff of Fabi[place] 13.2 (11.5-14.5) % Plt Count 229 (130-400) K/uL MPV 9.1 L (9.4-12.3) fL Immature Gran % (Auto) 0.1 % Neut % (Auto) 65.2 % Lymph % (Auto) 24.2 % [place] % (Auto) 8.6 % Eos % (Auto) 1.6 % Baso % (Auto) 0.3 % Neut # (Auto) 4.85 (1.4-6.5) K/uL Lymph # (Auto) 1.80 (1.2-3.4) K/uL [place] # (Auto) 0.64 (0.24-0.82) K/uL Eos # (Auto) 0.12 (0-0.50) K/uL Baso # (Auto) 0.02 (0-0.2) K/uL Immature Gran # (Auto) 0.01 (0.00-0.02) K/uL Sodium (136-145) mmol/L Potassium (3.5-5.1) mmol/L Chloride (98-107) mmol/L Carbon Dioxide (21-32) mmol/L Anion Gap (3-11) BUN (6-23) mg/dl Creatinine (0.6-1.2) mg/dl Est Cr Clr Drug Dosing ml/min Est GFR ( Amer) ml/min Est GFR (Non-Af Amer) ml/min BUN/Creatinine Ratio (10-20) Glucose (70-99(Fasting)) mg/dl Calcium (8.5-10.1) mg/dl Magnesium (1.7-2.4) mg/dl Total Bilirubin (0.2-1.0) mg/dl AST (13-39) U/L ALT (7-52) U/L Alkaline Phosphatase (34-104) U/L Total Protein (6.0-8.3) gm/dl Albumin (3.4-5.0) gm/dl Globulin (2.5-4.0) gm/dl Albumin/Globulin Ratio (0.9-2)
[2022-05-17 07:47] LABS: Albumin Globulin Ratio 1.5 (0.9-2); Albumin Level 3.4 gm/dl (3.4-5.0); BUN Creatinine Ratio 10.8 (10-20); Bilirubin,Total 0.6 mg/dl (0.2-1.0); Calcium 8.3 mg/dl (8.5-10.1); Creatinine Clr Calc Pharmacy 67.6 ml/min; Est GFR (African American) 102.8 ml/min; Est GFR (Non-African American) 88.7 ml/min; Globulin 2.2 gm/dl (2.5-4.0); Potassium 4.1 mmol/L (3.5-5.1); Total Protein 5.6 gm/dl (6.0-8.3)
[2022-05-17] MEDS ORDERED: ROSUVASTATIN CALCIUM 10 MG TAB PO SCH (09:00)
[2022-05-17] MEDS ORDERED: LEVOTHYROXINE SODIUM 75 MCG TABLET PO SCH (09:00)
[2022-05-17] MEDS: LOSARTAN POTASSIUM 50 MG TAB PO SCH (09:33)
--- NOTE | 2022-05-17 09:58 | Discharge Summary ---
Date of Service May 17, 2022 Admission HPI Per Admitting Provider 71 year old female w/ IBS, HTN, hypothyroidism, and who presents for right sided abdominal pain that started yesterday evening. The pain was rated at 9-10 out of 10, sharp, and woke her up from sleep. It is intermittent and in the periumbilical and right mid and right lower abdomen. Denies eating new foods or sick contact. No one in the family has similar symptoms. She denies history of similar abdominal pain. She had nausea, but no vomiting, fevers, chills, constipation or diarrhea. Her bowel movements have been regular. She denies urinary symptoms or history of kidney stones. No history of CHF. She last ate yesterday evening. She took her AM meds. ED course: 1L NSS. Zofran. prn morphine home meds: levothyroxine 75mcg, losartan, rosuvastatin cbc, cmp reviewed. lipase neg. UA w/ 1+ ketones. Admission Exam Per Admitting Provider General: Grossly A&O. NAD. Cooperative. HEENT: Atraumatic, normocephalic. EOMI. Oropharynx w/o erythema or edema. Pulm: CTAB. -wheezes, -rales, -rhonchi. No respiratory distress. Cardiac: RRR, -mrg. Radial pulses intact and symmetrical. Abdominal: Nondistended, soft. R mid and R lower abd ttp to light palpation. No guarding or rebound at time of my exam: s/p 3 doses of morphine IV 4mg. Back: No cva ttp. No spinal ttp. Neg SLR bilaterally. Integ: Warm, dry, intact. Principal Diagnosis Small bowel obstruction Discharge Exam General: Grossly A&O. NAD. Cooperative. HEENT: Atraumatic, normocephalic. EOMI. Oropharynx w/o erythema or edema. Pulm: CTAB. -wheezes, -rales, -rhonchi. No respiratory distress. Cardiac: RRR, -mrg. Radial pulses intact and symmetrical. Abdominal: Nondistended, soft. R mid and R lower abd ttp to light palpation. No guarding or rebound at time of my exam: s/p 3 doses of morphine IV 4mg. Back: No cva ttp. No spinal ttp. Neg SLR bilaterally. Integ: Warm, dry, intact. Discharge Data Allergies Allergy/AdvReac Type Severity Reaction Status Date / Time lisinopril AdvReac Unknown Verified 05/15/22 10:41 Penicillins AdvReac Unknown Verified 05/15/22 10:41 Consultations 05/15/22 09:36 ED Decision to Admit Stat Ordered Studies 05/15/22 06:37 CT abd pelvis IV con only Stat 05/15/22 11:05 US abdomen limited Urgent Abdomen/Pelvis CT 05/15/22 06:[address] WITH IV CONTRAST CT DOSE: 266.52 mGy.cm HISTORY: Acute right lower quadrant abdominal pain RLQ pain TECHNIQUE: Multiaxial CT images of the abdomen and pelvis were performed following the IV administration of 94 cc of Optiray, A dose lowering technique was utilized adhering to the principles of ALARA. COMPARISON STUDY: None. FINDINGS: Subsegmental bibasilar atelectasis. No pneumatosis or pneumoperitoneum. Unremarkable spleen. There is equivocal interstitial and peripancreatic edema. The adrenal glands are within normal limits. Cholelithiasis without CT evidence of acute cholecystitis. There are a few indeterminate subcentimeter hypodense foci of the left hepatic lobe which are too small to characterize. Patency of the hepatic and portal veins. No renal or ureteral calculi or hydronephrosis. Symmetric enhancement of the kidneys. External renal pelves are noted bilaterally. Decompressed urinary bladder. Unremarkable uterus. No abdominal aortic aneurysm or lymphadenopathy. Distal esophageal wall thickening. Fluid within the distal esophagus is noted. Moderate sized duodenal diverticulum. Trace free pelvic fluid. Colonic diverticulosis without acute diverticulitis. The terminal ileum is decompressed. The appendix appears noninflamed on image 289 series 3. There are several fluid- filled nondilated loops of small bowel within the right midabdomen which demonstrate mild interloop edema. Several loops of distal and fluid-filled small bowel measure within the upper limits of normal at approximately 3 cm. No discrete transition point identified. Tiny fat filled umbilical hernia. Mild generalized body wall edema. No acute fracture. Mild paravertebral edema at L1- L2 is noted with severe intervertebral disc space narrowing. Lumbar levoscoliosis. IMPRESSION: 1. Borderline dilated fluid and stool-filled loops of small bowel within the abdomen and pelvis measuring up to 3 cm. Interloop edema is noted involving nondilated fluid-filled loops of small bowel within the right midabdomen. Findings are suggestive of a nonspecific enteritis with possible partial small bowel obstruction. Follow-up is recommended. 2. No pneumatosis or pneumoperitoneum. 3. Noninflamed appendix. 4. Equivocal edema involving the pancreas. Correlate with serum lipase recommended. 5. Severe intervertebral disc space narrowing at L1-L2 with nonspecific paravertebral edema which may be secondary to degenerative change versus discitis/osteomyelitis. Correlate with patient history and clinical exam findings. ACT 112: Negative or not required by law. The above report was generated using voice recognition software. It may contain grammatical, syntax or spelling errors. Electronically signed by: Fredrick Martin M.D. 05/15/2022 8:47 AM Abdomen Ultrasound 05/15/22 11:05 US abdomen limited CLINICAL HISTORY: gallbladder TECHNIQUE: Multiple real-time sonographic images of the right upper quadrant were obtained. Comparison: Comparison is made to CT abdomen pelvis 05/15/2022 FINDINGS: The liver is diffusely homogenous with normal contour and echogenicity. No focal mass lesions are seen. No intrahepatic ductal dilatation is seen. Linear hyperechoic foci with posterior shadowing are identified layering dependently within the gallbladder, which are consistent with gallstones. The gallbladder wall is not thickened. There is no pericholecystic fluid present. The common duct measures 0.4 cm in diameter at the level of the hepatic artery. The visua lized portions of the pancreas appear normal. Extrarenal pelvis is noted. No ascites or free fluid is seen in Bahena's pouch. IMPRESSION: Gallstones without evidence of acute cholecystitis. ACT 112: Negative or not required by law. Electronically signed by: Danny Mejía M.D. 05/15/2022 12:50 PM Hospital Course (1) Right sided abdominal pain: 71 year old female w/ IBS, HTN, and hypothyroidism who presented with right sided abdominal pain that started 14 evening with associated nausea - no vomiting and was admitted for a suspected SBO. Now clinically improved and cleared for discharge. SBO - CT abd pelv: Borderline dilated fluid and stool-filled loops of small bowel within the abdomen and pelvis measuring up to 3 cm. Interloop edema is noted involving nondilated fluid-filled loops of small bowel within the right midabdomen. Findings are suggestive of a nonspecific enteritis with possible partial small bowel obstruction. - main risk factor for adhesions is her hx of laparoscopic tubal ligation - SIRS negative, not septic appearing. vitals stable - RUQ ultrasound: gallstones without acute cholecystitis Patient was given IV fluids and pain was well controlled with Tylenol and Toradol during her hospital stay. Patient was tolerating a regular diet at the time of discharge and hydrating well. DJD (degenerative joint disease): - severe L1-L2 disc narrowing per CT abd - w/ absence of spinal ttp or back pain, less likely contributory to chief complaint of R abd pain Hypertension: d/c with home meds Hypothyroid: d/c with home meds IBS (irritable bowel syndrome): - controlled, not on medications Plan Discharge home. full code (2) DJD (degenerative joint disease): (3) Hypertension: (4) Hypothyroid: (5) IBS (irritable bowel syndrome): Total Time Total Time Spent Total Time Spent (In Minutes): See attending attestation Discharge Plan Discharge Items Patient Disposition: Home - Self-Care Reason For Visit: SEVERE RIGHT SIDED ABDOMINAL PAIN Discharge Diagnosis: Small Bowel Obstruction Activity: Per Instructions section Non-emergency contact: Primary Care Provider Call non-emergency contact if: you have any medication questions, your symptoms worsen and your pain is not controlled Follow-up/Referrals: Ananda Leos [Primary Care Provider] - Diet: Regular Addtl Attending Provider Instructions: You were admitted to the hospital for a small bowel obstruction. We treated you with pain medications to help with you abdominal pain and bowel rest. Slowly we advanced your diet from a liquid diet to a regular diet and your symptoms did not return. If you symptoms (nausea, vomiting, abdominal pain) do return please call your primary care doctor or return to the ED. A discharge summary will be sent to your primary care physician to ensure continuity of care. Please bring this discharge summary with you to your next office appointment so that your provider can review it at that time. Follow-up appointments: We have requested a follow-up appointment with your primary care physician within one week of discharge. Please call their office if you do not hear from them. Pending Studies at Discharge: No Stand-Alone Forms: My [facility] Medications and DC Order Prescriptions: Continued losartan 50 mg tablet 100 mg PO HS levothyroxine [Synthroid] 75 mcg tablet 75 mcg PO DAILY rosuvastatin 10 mg tablet 10 mg PO DAILY Discharge Orders: Discharge Order (Routine); Ordered 05/17/22 Ordered By: Codey Ritchie Admission Data Admit Date/Time: 05/15/22 10:28 Attending Provider: Codey Ritchie Admit Provider: Tripp Medrano Primary Care Provider: Ananda Leos Other Providers: Codey Ritchie Other Interventions: Discharge Summary Assessment (RN) Last Done: 05/17/22 09:35 Supervising Physician Co-Signing Physician Notes I personally examined the patient and verified all brown points of history and exam, discussed case, and agree with decision making with Dr Mccurdy feeling better eating regular food OK no pain had BM feels up to going home vitals noted nad heent nc at mmm breathing unlabored no accessory muscles good effort abd soft nd nt no guarding no rebound no rigidity SBO - adhesional - improved. tolerating diet. stable for home. otherwise as above Resident Activity Tracking Resident Involvement: Resident Care Provided Care Provided: Adult Hospital Medicine
--- NOTE | 2022-05-17 15:25 | Billing Data ---
Date of Service May 17, 2022 Coding Level of Care Code D/C DAY MANAGEMENT <30 MINS
== END 2022-05-17 10:17 | disposition home or self-care (01) | DRG 390 ==
LOC: ED 06:10 → EDINP 10:28 → 2S 13:06